=== PATIENT | male | born 1980 | race Caucasian/White ===

== ENCOUNTER 2018-05-07 19:13 | Observation (INO) ==
[2018-05-07] MEDS ORDERED: ONDANSETRON HCL/PF 2 MG/ML VIAL IV ONE (19:31)
[2018-05-07] MEDS ORDERED: MORPHINE SULFATE 4 MG/ML SYRG IV ONE (19:32)
[2018-05-07] MEDS ORDERED: MORPHINE SULFATE 4 MG/ML SYRG ONE (19:35)
[2018-05-07] MEDS ORDERED: ONDANSETRON HCL/PF 2 MG/ML VIAL ONE (19:36)
[2018-05-07] MEDS ORDERED: HYDROmorphone HCL 1 MG/ML DISP.SYRIN IV ONE (19:38)
[2018-05-07] MEDS ORDERED: LORazepam 2 MG/ML DISP.SYRIN IV ONE (19:38)
[2018-05-07] MEDS ORDERED: HYDROmorphone HCL 1 MG/ML DISP.SYRIN ONE (19:42)
[2018-05-07] MEDS ORDERED: LORazepam 2 MG/ML DISP.SYRIN ONE (19:43)
[2018-05-07] MEDS ORDERED: DIPHTH,PERTUSS(ACELL),TET VAC 0.5 ML VIAL IM ONE ×2 (20:15→20:38)
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
[2018-05-07] MEDS: ceFAZolin SODIUM 1 GM VIAL IV ONE ×2 (20:30→20:38)
[2018-05-07] MEDS ORDERED: ceFAZolin SODIUM 1 GM in DEXTROSE 5 % IN WATER 100 ML IV ONE ×2 (20:30)
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
[2018-05-07] MEDS ORDERED: ceFAZolin SODIUM 1 GM VIAL IV SCH (20:45)
[2018-05-07] MEDS: NORMAL SALINE 1,000 ML IV PRN (21:38)
[2018-05-07] MEDS: MORPHINE SULFATE 4 MG/ML SYRG IV PRN (23:34)
[2018-05-08] MEDS: ceFAZolin SODIUM 1 GM in DEXTROSE 5 % IN WATER 100 ML IV SCH ×8 (02:04→19:49)
[2018-05-08] MEDS: MORPHINE SULFATE 4 MG/ML SYRG IV PRN ×5 (02:15→12:21)
[2018-05-08] MEDS ORDERED: MAG HYDROX/ALUMINUM HYD/SIMETH 30 ML UDC PO PRN (03:01)
[2018-05-08] MEDS: NORMAL SALINE 1,000 ML IV PRN (06:25)
--- NOTE | 2018-05-08 09:57 | PREOP NOTE ---
Preoperative Progress Note - Preoperative Changes Changes to Preop Condition?: Changes Noted Below Changes noted since H&P was completed.: Lungs clear to auscultation, heart regular rate and rhythm
--- NOTE | 2018-05-08 13:25 | ANES ---
Anesthesia Pre Procedure Eval Vitals/Labs: Last Vital Signs Temp 36.7 C 05/08/18 11:33 Pulse 69 05/08/18 11:33 Resp 18 05/08/18 11:33 BP 126/76 05/08/18 11:33 Pulse Ox 98 05/08/18 11:33 HOME MEDICATIONS NK 05/07/18 [Last Taken Unknown] Allergies/Adverse Reactions: Allergies Allergy/AdvReac Type Severity Reaction Status Date / Time No Known Allergies Allergy Verified 05/07/18 23:28 - Planned Procedure Planned Procedure: R ANKLE FX Medical History (Last Reviewed 05/08/18 @ 13:17 by Pee Enriquez CRNA) History of appendectomy No pertinent past medical history Family History (Last Reviewed 05/08/18 @ 13:17 by Pee Enriquez CRNA) Grandfather Stomach cancer Brain cancer - Family Anesthesia History Family History:: no untoward family reactions to anesthesia, no familial bleeding tendencies, no family history of clotting disorders, no family history of premature - Airway/Neck/Teeth Within Normal Limits:: Yes Teeth Condition: Intact Neck Exam: non-tender, full range of motion, normal alignment Mallampatti Score: 3 Thyromental (T-M) distance: > 6 cm Mandibulo Hyoid distance: > 3 cm - Respiratory Respiratory: chest non-tender, lungs clear, normal breath sounds Smoking Status: Never smoker Sleep Apnea currently treated: No Sleep Apnea by current assessment: Yes - by H&P Discussed Risks/Treatment of GONZALO: Yes - Cardiovascular Patient History - Cardiac/Respiratory: No pertinent hx, Sleep Apnea - by personal H&P Tolerates Activity: Good Heart Sounds: S1 & S2, Regular - Anesthesia Assessment and Plan ASA Class: PS, II Anesthesia Type Plan: General LMA, Block - for post op pain relief Planned difficult intubation/equipment available: Yes
[2018-05-08] MEDS ORDERED: RINGER'S SOLUTION,LACTATED 1,000 ML IV PRN (14:04)
--- NOTE | 2018-05-08 16:37 | POSTOP NO ---
Date of Surgery: 05/08/18 Patient Tolerated the Procedure: Well Post Operative Diagnosis/Procedures: Field Ironworker: Bradford David PA-C Post-operative Diagnosis: Grade 1 open right fibular fracture bimalleolar equivalent ankle fracture with syndesmotic disruption and deltoid disruption Finding: Above Procedure: Open reduction internal fixation of right fibula, stabilization of syndesmosis, open repair of deltoid ligament, irrigation and debridement of wounds Estimated Blood Loss: Minimal Specimens: None
[2018-05-08] MEDS ORDERED: oxyCODONE HCL/ACETAMINOPHEN 1 TAB TABLET PO PRN (16:38)
[2018-05-08] MEDS ORDERED: DEXTROSE 5%-LACTATED RINGERS 1,000 ML IV PRN (16:38)
[2018-05-08] MEDS ORDERED: ONDANSETRON HCL/PF 2 MG/ML VIAL IV PRN (16:38)
--- NOTE | 2018-05-08 16:44 | DS ---
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 He went to the operating room on 05/08/2018 for fixation. He tolerated this well. He is being discharged home. He is nonweightbearing. Ice and elevate the extremity. Keep the dressings dry and intact. He will start an aspirin 325 mg by mouth twice daily. He will follow up in 10-14 days. Procedures Performed: see notes below Disposition: Home self-care Condition: Good Discharge Activity: Non-Weight bearing Discharge Diet: General/regular food
[2018-05-08] MEDS ORDERED: BUPIVACAINE HCL 50 ML VIAL IJ ONE (16:45)
--- NOTE | 2018-05-08 17:11 | ANES ---
Post Anesthesia Discharge - Transfer of Care Transfer of Care handoff given to nurse: Yes - Discharge from PACU Discharge from PACU when meets criteria: Yes - Comfortable in PACU
--- NOTE | 2018-05-08 17:11 | ANES ---
Anesthesia Procedure Note Procedure Note: ANESTHESIA PROCEDURE NOTE Date of Procedure: 1316 2017 Time of procedure: 1350. Performed by: SOFY Davila CRNA, MSN Trashman: Zabrina Beard RN. Preprocedure diagnosis: Post ankle surgery pain relief. Post procedure diagnosis: Same. Procedure: Right Sciatic nerve block superior to the popliteal fossa . Indications: Post ankle surgery pain relief. Findings: See below. Details of the procedure: The patient was brought to OR #2 and placed in supine position. The patient's right leg was elevated and the popliteal posterior and lateral distal femoral area was prepped with chlorhexidine and using ultrasound guidance the great popliteal and tibial nerves were identified and followed proximally until the nerves merged then lidocaine 1% was infiltrated to the skin of the anterolateral thigh at the intended injection site. Under ultrasound guidance the sciatic nerve was approached with visualization of a 4 inch stimulator needle until a leg/foot response was identified on nerve stimulator. Once the stimulator response was effective at less than 0.5 mV and greater than 0.3 mV the sciatic nerve was surrounded with 30 mL bupivacaine 0.5 % with 1-200,000 epinephrine. Please see radiology/ultrasound report for details and images of the procedure. EBL: 0 Fluids: N/A. Specimen: N/A. Post procedure condition: The patient tolerated the procedure well. No complications were noted. Thank you for this consultation. Pee Enriquez CRNA, ARNP, MSN
--- NOTE | 2018-05-08 17:26 | ANES ---
Post Anesthesia Assessment - Vital Signs Vitals: Last Vital Signs Temp 37.9 C 05/08/18 17:05 Pulse 89 05/08/18 17:20 Resp 14 05/08/18 17:20 BP 127/59 05/08/18 17:20 Pulse Ox 93 05/08/18 17:20 Airway Patency: Normal - Mental Status Level Of Consciousness: Awake, Follows Commands, Drowsy - Pain Level Pain Score: 0 - N/V Assessment Nausea/Vomiting Presence: None Dehydration:: No
[2018-05-08] MEDS ORDERED: ASPIRIN 325 MG TABLET.DR PO SCH (21:00)
[2018-05-08 21:20] VITALS: BP 138/84
== END 2018-05-08 20:58 | disposition home or self-care (01) ==
LOC: ER 19:13 → MS 19:13
PROVIDERS: ADMIT Orthopaedic Surgery; ATTEND Orthopaedic Surgery
CPT/HCPCS: 73600; 90471; 90715; 96361; 96365; 96366; 96367; 96375; 96376; 99285; C1713; G0378; J2405